=== PATIENT | female | born 1950 | race Caucasian/White ===

== ENCOUNTER 2016-11-03 05:41 | Inpatient (IN) | payer MEDICARE, OTHER ==
[~2016-11-03] VITALS: Ht 180.3 cm; Wt 131.0 kg
[~2016-11-03 05:41] MED LIST: ACET-703 PO; ASPI325T PO; CARA1TAB6 PO; CHEL50TA PO; CINN500T PO; CO Q100C9 PO; CYAN1TAB24 PO; FERR1TAB52 PO; GING550C PO; GLUC15009 PO; HYDR-3535 PO; IBUP-988 PO; MAGN500T4 PO; MILK1CAP PO; TURMCAP PO; VITA100018 PO; ZYRT10TA PO
[2016-11-03] MEDS ORDERED: ceFAZolin 2 GM PREMIX 50 ML ONE (06:23)
[2016-11-03 06:37] VITALS: BP 138/74; PULSE 63; RESP 20; TEMP 98.7; O2SAT 98
[2016-11-03] MEDS ORDERED: ACETAMINOPHEN 1000 MG/100 ML VIAL IV ONE (07:39)
[2016-11-03] MEDS ORDERED: fentaNYL CITRATE 250 MCG/5 ML AMP ONE ×2 (07:40→13:04)
[2016-11-03] MEDS ORDERED: MIDAZOLAM HCL 2 MG/2 ML VIAL ONE (07:40)
[2016-11-03] MEDS ORDERED: FAMOTIDINE 20 MG/2 ML VIAL ONE (07:40)
[2016-11-03 07:43] LABS: AUTOMATED NEUTROPHIL # 4.1 TH/MM3 (1.8-7.7); BASOPHIL % 0.5 % (0.0-2.0); EOSINOPHIL # 0.1 TH/MM3 (0-0.4); EOSINOPHIL % 1.6 % (0.0-4.0); HEMATOCRIT 39.9 % (35.0-46.0); HEMO FLAGS DIFF FINAL; LYMPH % 18.7 % (9.0-44.0); LYMPHOCYTE # 1.2 TH/MM3 (1.0-4.8); MEAN CELL VOLUME 91.2 FL (80.0-100.0); MONO % 13.8 % (0.0-8.0); NEUT % 65.4 % (16.0-70.0); PLATELET COUNT 187 TH/MM3 (150-450); RED BLOOD COUNT 4.38 MIL/MM3 (4.00-5.30); RED CELL DISTRIBUTION WIDTH 14.3 % (11.6-17.2); WHITE BLOOD COUNT 6.3 TH/MM3 (4.0-11.0)
[2016-11-03 07:47] LABS: ALT (GPT) 18 U/L (10-53); ANION GAP 8 MEQ/L (5-15); AST (GOT) 15 U/L (15-37); BICARBONATE 24.9 MEQ/L (21.0-32.0); BLOOD UREA NITROGEN 18 MG/DL (7-18); CHLORIDE 108 MEQ/L (98-107); GLOMERULAR FILTRATION RATE 40 ML/MIN (>89); POTASSIUM 3.9 MEQ/L (3.5-5.1); SODIUM (NA) 141 MEQ/L (136-145)
[2016-11-03 07:49] LABS: ALKALINE PHOSPHATASE 91 U/L (45-117); TOTAL BILIRUBIN ADULT 0.4 MG/DL (0.2-1.0)
[2016-11-03] MEDS ORDERED: BUPIVACAINE LIPOSOME PF 1.3% 20 ML VIAL ONE (10:18)
[2016-11-03] MEDS ORDERED: KETOROLAC TROMETHAMINE 60 MG/2 ML (IM) VIAL IM ONE (12:00)
[2016-11-03] MEDS ORDERED: ONDANSETRON HCL 4 MG/2 ML VIAL IV PUSH ONE (12:00)
[2016-11-03] MEDS ORDERED: PROPOFOL 200 MG/20 ML AMP IV ONE (12:00)
[2016-11-03] MEDS ORDERED: LACTATED RINGER'S 1000 ML INJ 2,000 ML IV ONE (12:00)
[2016-11-03] MEDS ORDERED: SODIUM CHLORIDE 0.9% FLUSH 10 ML FLUSH IV FLUSH PRN (12:45)
[2016-11-03] MEDS ORDERED: Post-op Orders (for Pharmacy) MISC XX ONE (12:45)
[2016-11-03] MEDS ORDERED: HYDROmorphone HCL PF 1 MG/ML VIAL IV PRN (12:45)
[2016-11-03] MEDS ORDERED: MAGNESIUM HYDROXIDE SUSP 30 ML CUP PO PRN (12:45)
--- NOTE | 2016-11-03 12:48 | PD.OP ---
Operative Report Date of Surgery: Nov 03, 2016 Preoperative Diagnosis: ventral incisional hernia, morbid obesity Postoperative Diagnosis: same Procedure: open repair VIH with AWR components separation, retrorectus mesh placement, L side TAR, R side anterior fascial release. abdominoplasty, BOBBI dressings Anesthesia: general, preop Tap block Surgeon: Marc Minaya Coil Assembler(s): Elicia Gonzalse MS3 Operation and Findings: Multiloculated VIHs, 15 x 25 cm polypropylene mesh. 1.4 KG skin and subcutaneous fat excision. EBL less than 100 ml. Marc Minaya MD Nov 03, 2016 12:48
[2016-11-03] MEDS ORDERED: MORPHINE SULFATE 4 MG/ML INJ ONE (13:04)
[2016-11-03] MEDS ORDERED: *morphine SULFATE 8 MG/ML PERIprocedure ONLY ONE (13:16)
[2016-11-03] MEDS ORDERED: *HYDROmorphone PF 1 MG VIAL PERIprocedural Use ONLY ONE (13:44)
[2016-11-03] MEDS: LACTATED RINGER'S 1000 ML INJ 1,000 ML IV SCH ×2 (13:54→20:22)
[2016-11-03] MEDS: KETOROLAC TROMETHAMINE 30 MG/ML (IVP) VIAL IVP SCH ×2 (14:00→20:19)
[2016-11-03] MEDS ORDERED: DO NOT ADM ANY ANTICOAGULANT DRUGS PRN (14:00)
[2016-11-03] MEDS: ONDANSETRON HCL 4 MG/2 ML VIAL IV PRN (15:46)
[2016-11-03] MEDS: ACETAMINOPHEN 1000 MG/100 ML VIAL IV SCH (15:46)
[2016-11-03 16:00] VITALS: BP 150/70; PULSE 76; RESP 17; TEMP 96.3; O2SAT 95
[2016-11-03 17:37] VITALS: O2SAT 94
[2016-11-03 20:00] VITALS: BP 132/62; PULSE 70; RESP 18; TEMP 96.3; O2SAT 92
[2016-11-03] MEDS: DOCUSATE SODIUM 100 MG CAP PO SCH (20:19)
[2016-11-03] MEDS: SODIUM CHLORIDE 0.9% FLUSH 10 ML FLUSH IV FLUSH SCH (20:21)
--- NOTE | 2016-11-03 21:07 | EKG ---
Date Performed: 11/03/2016 Time Performed: 07:43:28 PTAGE: 66 years EKG: SINUS BRADYCARDIA BORDERLINE ECG PREVIOUS TRACING : 10/22/2014 14.39 Compared to prior tracing no significant change DOCTOR: Yung Goel Interpretating Date/Time 11/03/2016 21:05:09
[2016-11-04] VITALS: BP 109/56; PULSE 63; RESP 16; TEMP 97; O2SAT 92
[2016-11-04] MEDS: ACETAMINOPHEN 1000 MG/100 ML VIAL IV SCH ×4 (00:34→23:53)
[2016-11-04] MEDS: KETOROLAC TROMETHAMINE 30 MG/ML (IVP) VIAL IVP SCH ×4 (03:14→21:03)
[2016-11-04 04:00] VITALS: BP 106/51; PULSE 63; RESP 18; TEMP 97.7; O2SAT 92
[2016-11-04 04:25] LABS: AUTOMATED NEUTROPHIL # 15.8 TH/MM3 (1.8-7.7); BASOPHIL % 0.1 % (0.0-2.0); HEMATOCRIT 38.5 % (35.0-46.0); HEMO FLAGS DIFF FINAL; LYMPH % 4.5 % (9.0-44.0); LYMPHOCYTE # 0.8 TH/MM3 (1.0-4.8); MEAN CELL VOLUME 92.9 FL (80.0-100.0); MEAN CORPUSCULAR HEMOGLOBIN 29.9 PG (27.0-34.0); MEAN CORPUSCULAR HGB CONC 32.2 % (32.0-36.0); MONO % 9.3 % (0.0-8.0); NEUT % 86.1 % (16.0-70.0); PLATELET COUNT 181 TH/MM3 (150-450); RED BLOOD COUNT 4.14 MIL/MM3 (4.00-5.30); RED CELL DISTRIBUTION WIDTH 14.3 % (11.6-17.2); WHITE BLOOD COUNT 18.4 TH/MM3 (4.0-11.0)
[2016-11-04 04:34] LABS: BICARBONATE 26.5 MEQ/L (21.0-32.0); POTASSIUM 4.6 MEQ/L (3.5-5.1)
--- NOTE | 2016-11-04 07:46 | HHI.PR ---
Subjective Subjective Notes Feels no pain. Ordering regualr food for breakfast, no nausea. Objective Vitals/I&O Vital Signs Date Time Temp Pulse Resp B/P Pulse Ox O2 Delivery O2 Flow Rate FiO2 11/04/16 04:00 97.7 63 18 106/51 92 11/03/16 17:37 21 11/03/16 15:00 Nasal Cannula 2 Labs Laboratory Tests Test 11/04/16 03:11 White Blood Count 18.4 Red Blood Count 4.14 Hemoglobin 12.4 Hematocrit 38.5 Mean Corpuscular Volume 92.9 Mean Corpuscular Hemoglobin 29.9 Mean Corpuscular Hemoglobin 32.2 Concent Red Cell Distribution Width 14.3 Platelet Count 181 Mean Platelet Volume 9.9 Neutrophils (%) (Auto) 86.1 Lymphocytes (%) (Auto) 4.5 Monocytes (%) (Auto) 9.3 Eosinophils (%) (Auto) 0.0 Basophils (%) (Auto) 0.1 Neutrophils # (Auto) 15.8 Lymphocytes # (Auto) 0.8 Monocytes # (Auto) 1.7 Eosinophils # (Auto) 0.0 Basophils # (Auto) 0.0 CBC Comment DIFF FINAL Differential Comment Sodium Level 138 Potassium Level 4.6 Chloride Level 105 Carbon Dioxide Level 26.5 Anion Gap 7 Blood Urea Nitrogen 21 Creatinine 1.51 Estimat Glomerular Filtration 34 Rate Random Glucose 116 Calcium Level 8.3 Magnesium Level 2.0 Cardiovascular: Regular Lungs: Clear Abdomen: Non-distended, Non-tender, Other (BOBBI dressings intact with little drainage. No leak.) Extremities: No edema, Perfused, SCD's on A/P Assessment and Plan POD 1 open repair VIHs with AWR and separation of components, retrorectus mesh, abdominoplasty. Doing well. Anti yeast powder in groin creases. Home when tolerating po well, po meds, voiding on own and having BMs. Marc Minaya MD Nov 04, 2016 07:46
[2016-11-04 08:00] VITALS: BP 93/52; PULSE 63; RESP 14; TEMP 97.2; O2SAT 94
[2016-11-04] MEDS: SODIUM CHLORIDE 0.9% FLUSH 10 ML FLUSH IV FLUSH SCH ×2 (09:22→21:00)
[2016-11-04] MEDS: DOCUSATE SODIUM 100 MG CAP PO SCH ×2 (09:22→21:03)
[2016-11-04] MEDS: LACTATED RINGER'S 1000 ML INJ 1,000 ML IV SCH ×2 (09:22→16:26)
[2016-11-04] MEDS: NYSTATIN 100,000 U/GM PWD 15 GM BTL TOPICAL SCH ×2 (09:23→21:03)
[2016-11-04 12:00] VITALS: BP 113/56; PULSE 88; RESP 18; TEMP 96.8; O2SAT 91
[2016-11-04] MEDS: ENOXAPARIN SODIUM 40 MG/0.4 ML SYRINGE SQ SCH (12:10)
[2016-11-04 16:00] VITALS: BP 107/54; PULSE 74; RESP 16; TEMP 97.5; O2SAT 93
[2016-11-04 20:00] VITALS: BP 129/60; PULSE 77; RESP 20; TEMP 99.3; O2SAT 91
--- NOTE | 2016-11-04 22:10 | MP ---
cc: TIM BOND MD DATE OF SURGERY 11/03/16 PREOPERATIVE DIAGNOSIS 1. Ventral incisional hernias. 2. Morbid obesity POSTOPERATIVE DIAGNOSES 1. Ventral incisional hernias. 2. Morbid obesity PROCEDURE 1. Open repair of ventral incisional hernias with abdominal wall reconstruction using modified component separation retro rectus placement of mesh 2. Abdominoplasty and ariela dressing placement. SURGEON Dr. Khushbu Bond STAFF PHYSICAL THERAPIST Dr. Janice Mccartney SECOND STAFF PHYSICAL THERAPIST Jessi Waller, MS III. ANESTHESIA General and TMP block preop INDICATIONS The patient is a pleasant 66-year-old woman who has had multiple previous abdominal surgeries and developed an upper midline ventral incisional hernia. It is increasing in size creating increasing symptoms of discomfort. She has had chronic disability associated with her obesity and requests consideration for abdominoplasty. INTRAOPERATIVE FINDINGS Multiple ventral incisional hernia defects in the upper midline contained both omentum and loops of small bowel. Small infraumbilical hernia defect. At least a 40 cm x 8 cm area of skin and subcutaneous tissue excised as abdominoplasty. Estimated blood loss less than 100 mL. PROCEDURE IN DETAIL The patient identified as Chayito Collins, taken to operating rooo, placed in supine position. Sequential compression devices were placed on bilateral lower extremities. Following induction of adequate general endotracheal anesthesia. A Fairchild catheter was placed and the patient's abdomen was prepped and draped in usual sterile fashion with Betadine. A time-out procedure was performed. Following completion of time-out procedure to everyone's satisfaction within the room, proposed incisions were made with a marking pen. The patient desired saving her umbilicus. The widened upper midline scar was excised using the scalpel and electrocautery. Small bleeding points were controlled with electrocautery. Skin and subcutaneous fatty tissue excised in entirety and removed. Hernia sacs were identified. One hernia sac was entered allowing for entry into the peritoneal cavity and release of the incarcerated small bowel and omentum from the hernia sac. Hernia sac was excised in multiple small pieces circumferentially. This allowed for identification of the edges of the hernia defect which was approximate 8 x 15 cm in size. There were multiple tiny bridges of fascia across the midline hernia defects. Component separation was then performed, releasing the posterior fascia and peritoneum from the rectus muscle. This was done on both sides. Upon releasing the posterior fascia and peritoneum from the rectus muscle laterally, there still was too much tension at the midline and, therefore, a transversus abdominis release on the left side was performed which allowed for medialization of the left side in order to allow for closure without unnecessary tension. A right side transverse abdominis release was not required. Adhesions from the omentum to the small bowel were taken down so as to avoid an internal hernia. Small bowel was preserved and not injured. A piece of Seprafilm was placed over the small bowel. The omentum was draped over the Seprafilm. The posterior fascia and peritoneum was then closed with a running #1 looped PDS suture. One small tear in the posterior fascia was closed with running 2-0 Vicryl suture. This retro rectus space was irrigated copiously with saline. There was no evidence of bleeding. It was measured in size. It was about 15 x 25 cm in size and a piece of Bard polypropylene mesh was brought on the back table, cut to an appropriate size of elliptical shape. It was placed into the retro rectus space and sutured in position with multiple interrupted 2-0 PDS sutures, first at the 12 and 6 o'clock position then at 3 and 9 o'clock position making the mesh taut in the retro rectus space. Multiple interrupted 2-0 PDS sutures were then placed, first between the 3 and o'clock then in the 9 and 12 o'clock and then the 3 and 12 o'clock and then the 6 and 9 o'clock positions. Irrigation ensued. There was no evidence of bleeding. The anterior fascia was then released circumferentially from the subcutaneous fatty tissue in both locations again. There was difficulty in full medialization of the anterior fascia and muscle and, therefore, a Fransisco type anterior release was performed on the right side but not on the left side. This allowed for midline medialization of the rectus fascia and rectus muscle which was then closed with two separate #1 PDS loop sutures starting from the top and bottom and meeting in the midline. The subcutaneous space was then irrigated copiously with saline. Attention was then turned towards abdominoplasty. A wide elliptical type incision was made infraumbilical from hip to hip above the infraclavicular crease. The incision was carried out with a scalpel and hemostasis controlled with electrocautery. Large swab of skin and subcutaneous fatty tissue was excised in its entirety and passed off the field for pathologic evaluation. Incidentally discovered in the infraumbilical position was a small fascial defect which was approximated with interrupted [id number] using 2-0 PDS sutures. The umbilicus was preserved and appeared to have good blood supply. Several 2-0 Vicryl quilting sutures was used lateral to the midline in the supraumbilical position. 2-0 Vicryl was used to close both incisions in two layers and then the skin was approximated with surgical param. There appeared to be good blood supply to all the skin and subcutaneous fatty tissue flaps. No drains were placed. Ariela dressings were placed in a standard fashion across the low portion of the inverted T incision and across the midline incision. The Ariela dressings were connected to the vacuum battery packs and there was excellent function with no evidence of leak. The patient tolerated the procedures without apparent complication. Sponge, needle and instrument counts were correct at the end of the case. MD CHARLEEN Manzanares/ /8:46 PM /9:31 PM KELLI
[2016-11-05] VITALS: BP 120/57; PULSE 79; RESP 20; TEMP 97.2; O2SAT 93
[2016-11-05] MEDS: KETOROLAC TROMETHAMINE 30 MG/ML (IVP) VIAL IVP SCH ×4 (02:00→20:21)
[2016-11-05] MEDS: LACTATED RINGER'S 1000 ML INJ 1,000 ML IV SCH ×2 (04:37→14:37)
--- NOTE | 2016-11-05 06:54 | PD.PN.STU ---
Subjective Remarks POD #2 Abdominal Wall Repair and Abdominoplasty Ms. Collins was able to sleep some last night, and ambulated yesterday. She had flatulence but no bowel movement yet. Fairchild and IV fluids were being discontinued. Her overall pain is well controlled. She is complaining of one staple on lower right midline causing terrible pain any time she moves. She insists it must be fixed before she moves around today. She fought to have the Fairchild out until the staple is fixed. Objective Vitals Vital signs stable, urine output good. Abdomen soft, minimal tenderness, dressing dry with minimal dried blood. GENERAL: SKIN: Warm and dry. HEAD: Normocephalic. EYES: No scleral icterus. No injection or drainage. NECK: Supple, trachea midline. No JVD or lymphadenopathy. CARDIOVASCULAR: Regular rate and rhythm without murmurs, gallops, or rubs. RESPIRATORY: Breath sounds equal bilaterally. No accessory muscle use. GASTROINTESTINAL: Abdomen soft, mildly tender, nondistended, BOBBI dressing intact, with minimal dried blood. MUSCULOSKELETAL: No cyanosis, or edema. BACK: Nontender without obvious deformity. No CVA tenderness. Vital Signs Date Time Temp Pulse Resp B/P Pulse Ox O2 Delivery O2 Flow Rate FiO2 11/05/16 00:00 97.2 79 20 120/57 93 11/04/16 20:00 99.3 77 20 129/60 91 11/04/16 16:00 97.5 74 16 107/54 93 11/04/16 12:00 96.8 88 18 113/56 91 11/04/16 08:00 97.2 63 14 93/52 94 I/O 11/04/16 11/04/16 11/04/16 11/05/16 11/05/16 11/05/16 07:00 15:00 23:00 07:00 15:00 23:00 Intake Total 595 ml 1952 ml 840 ml 120 ml Output Total 640 ml 400 ml 800 ml Balance 595 ml 1312 ml 440 ml -680 ml Intake Oral 800 ml 240 ml 120 ml IV Total 595 ml 1152 ml 600 ml Output Urine Total 640 ml 400 ml 800 ml # Bowel Movements 0 0 0 Result Diagram: 11/04/16 0311 11/04/16310 A/P Assessment and Plan Ms. Collins is 66F POD #2, doing well with only complaints about a suture causing pain, overall pain well controlled. Fairchild and IVF d/c Ambulation and normal diet today. Discharge when voiding on her own, bowel movement, and tolerating normal diet. I directly supervised the medical student. I agree with above assessment and plan. The following services were provided during this hospital visit: Chart data review, vital sign assessments/reviewing monitor data Review of consultation notes if present Medication orders/review and/or management Ordering and/or reviewing lab tests Ordering and/or interpreting/reviewing x-rays and/or diagnostic studies Care of the patient and discussion of the patient with the care team Documentation time The patient was seen and evaluated by Dr Reno on this date. Please refer to his note for details. Thanks. Marc WallerTimElicia Nov 05, 2016 06:54 Marc Minaya MD Nov 08, 2016 07:34
[2016-11-05 08:00] VITALS: BP 160/72; PULSE 68; RESP 14; TEMP 97.2; O2SAT 93
[2016-11-05] MEDS: ACETAMINOPHEN/HYDROcodone 325 MG/7.5 MG TAB PO PRN ×2 (09:20→18:21)
[2016-11-05] MEDS: DOCUSATE SODIUM 100 MG CAP PO SCH ×2 (09:20→20:24)
[2016-11-05] MEDS: ACETAMINOPHEN 1000 MG/100 ML VIAL IV SCH (09:23)
[2016-11-05] MEDS: SODIUM CHLORIDE 0.9% FLUSH 10 ML FLUSH IV FLUSH SCH ×2 (09:24→20:23)
[2016-11-05] MEDS: NYSTATIN 100,000 U/GM PWD 15 GM BTL TOPICAL SCH ×2 (09:24→20:24)
[2016-11-05 12:00] VITALS: BP 118/58; PULSE 68; RESP 20; TEMP 98.4; O2SAT 94
[2016-11-05] MEDS: ENOXAPARIN SODIUM 40 MG/0.4 ML SYRINGE SQ SCH (13:10)
[2016-11-05 16:00] VITALS: BP 120/58; PULSE 68; RESP 20; TEMP 97.9; O2SAT 93
--- NOTE | 2016-11-05 16:14 | HHI.PR ---
Subjective Subjective Notes Afraid to eat Pain RLQ just above dressing; feels a "pulling sensation" with pain Objective Vitals/I&O Vital Signs Date Time Temp Pulse Resp B/P Pulse Ox O2 Delivery O2 Flow Rate FiO2 11/05/16 12:00 98.4 68 20 118/58 94 11/03/16 17:37 21 11/03/16 15:00 Nasal Cannula 2 Lungs: Clear Abdomen: Non-distended, Post-op tenderness Narrative Exam BOBBI dressings x 3 intact with minimal drainage A/P Problem List: (1) Depression Assessment and Plan Assessment and Plan POD 2 open repair VIHs with AWR and separation of components, retrorectus mesh, abdominoplasty. Doing well. Anti yeast powder in groin creases. Tolerating liquids; reports much flatus and a single BM Home when tolerating po well, po meds, voiding on own and having BMs. Marlon Reno MD Nov 05, 2016 16:14
[2016-11-05 20:00] VITALS: BP 180/74; PULSE 74; RESP 20; TEMP 97.9; O2SAT 92
[2016-11-06] VITALS: BP 129/61; PULSE 77; RESP 20; TEMP 97.9; O2SAT 92
[2016-11-06] MEDS: LACTATED RINGER'S 1000 ML INJ 1,000 ML IV SCH ×3 (01:35→20:37)
[2016-11-06] MEDS: KETOROLAC TROMETHAMINE 30 MG/ML (IVP) VIAL IVP SCH ×2 (02:00→08:47)
[2016-11-06] MEDS: ACETAMINOPHEN/HYDROcodone 325 MG/7.5 MG TAB PO PRN ×3 (02:44→20:43)
[2016-11-06 08:00] VITALS: BP 139/63; PULSE 83; RESP 19; TEMP 98.6; O2SAT 94
[2016-11-06] MEDS: DOCUSATE SODIUM 100 MG CAP PO SCH ×2 (08:46→20:44)
[2016-11-06] MEDS: SODIUM CHLORIDE 0.9% FLUSH 10 ML FLUSH IV FLUSH SCH ×2 (08:48→20:45)
[2016-11-06] MEDS: NYSTATIN 100,000 U/GM PWD 15 GM BTL TOPICAL SCH ×2 (08:48→20:45)
[2016-11-06] MEDS: ENOXAPARIN SODIUM 40 MG/0.4 ML SYRINGE SQ SCH (11:19)
[2016-11-06 12:00] VITALS: BP 136/70; PULSE 86; RESP 18; TEMP 97.2; O2SAT 95
[2016-11-06] MEDS: ACETAMINOPHEN/HYDROcodone 325 MG/5 MG TAB PO PRN (12:43)
--- NOTE | 2016-11-06 15:16 | HHI.PR ---
Subjective Subjective Notes DAILY PROGRESS NOTE FOR SURGICAL ATTENDING, DR. QUAN OZUNA Doing well Minimal pain Some of the leobardo dressings making noises Objective Vitals/I&O Vital Signs Date Time Temp Pulse Resp B/P Pulse Ox O2 Delivery O2 Flow Rate FiO2 11/06/16 12:00 97.2 86 18 136/70 95 11/03/16 17:37 21 11/03/16 15:00 Nasal Cannula 2 Labs Laboratory Tests Test 11/03/16 11/04/16 07:00 03:11 Total Bilirubin 0.4 MG/DL Aspartate Amino Transf 15 U/L (AST/SGOT) Alanine Aminotransferase 18 U/L (ALT/SGPT) Alkaline Phosphatase 91 U/L Total Protein 6.8 GM/DL Albumin 3.3 GM/DL White Blood Count 18.4 TH/MM3 Red Blood Count 4.14 MIL/MM3 Hemoglobin 12.4 GM/DL Hematocrit 38.5 % Mean Corpuscular Volume 92.9 FL Mean Corpuscular Hemoglobin 29.9 PG Mean Corpuscular Hemoglobin 32.2 % Concent Red Cell Distribution Width 14.3 % Platelet Count 181 TH/MM3 Mean Platelet Volume 9.9 FL Neutrophils (%) (Auto) 86.1 % Lymphocytes (%) (Auto) 4.5 % Monocytes (%) (Auto) 9.3 % Eosinophils (%) (Auto) 0.0 % Basophils (%) (Auto) 0.1 % Neutrophils # (Auto) 15.8 TH/MM3 Lymphocytes # (Auto) 0.8 TH/MM3 Monocytes # (Auto) 1.7 TH/MM3 Eosinophils # (Auto) 0.0 TH/MM3 Basophils # (Auto) 0.0 TH/MM3 CBC Comment DIFF FINAL Differential Comment Sodium Level 138 MEQ/L Potassium Level 4.6 MEQ/L Chloride Level 105 MEQ/L Carbon Dioxide Level 26.5 MEQ/L Anion Gap 7 MEQ/L Blood Urea Nitrogen 21 MG/DL Creatinine 1.51 MG/DL Estimat Glomerular Filtration 34 ML/MIN Rate Random Glucose 116 MG/DL Calcium Level 8.3 MG/DL Magnesium Level 2.0 MG/DL Cardiovascular: Regular Lungs: Clear Abdomen: Post-op tenderness Extremities: SCD's on Narrative Exam 3 leobardo dressings with good seal A/P Assessment and Plan pOD 3 open repair VIHs with AWR and separation of components, retrorectus mesh, abdominoplasty. Doing well. Anti yeast powder in groin creases. Tolerating liquids; reports much flatus and a single BM Home when tolerating po well, po meds, voiding on own and having BMs. Attending Statement NOTE FOR SURGICAL ATTENDING, DR. QUAN OZUNA I attest that I had a [id number] encounter with the patient on the same day, and personally performed and documented my assessment and findings in the medical record. The following services were provided during this hospital visit: Chart data review, vital sign assessments/reviewing monitor data Review of consultations notes if present. Medication orders/review and/or management Ordering and/or reviewing lab tests Ordering and/or interpreting/reviewing x-rays and/or diagnostic studies Care of the patient and discussion of the patient with the care team Documentation time To help prompt me to consider important information that might be impacting today's encounter and assessment, information from prior notes written by myself or my colleagues may have been "brought forward/copy and pasted" into today's note. Quan Ozuna MD Nov 06, 2016 15:16
[2016-11-06 16:00] VITALS: BP 135/73; PULSE 84; RESP 18; TEMP 96.8; O2SAT 95
[2016-11-06 20:00] VITALS: BP 145/69; PULSE 86; RESP 18; TEMP 99.6
[2016-11-07 01:01] VITALS: BP 115/56; PULSE 80; RESP 18; TEMP 99.2; O2SAT 92
[2016-11-07] MEDS: ACETAMINOPHEN/HYDROcodone 325 MG/7.5 MG TAB PO PRN (04:02)
[2016-11-07] MEDS: LACTATED RINGER'S 1000 ML INJ 1,000 ML IV SCH ×2 (04:02→16:37)
[2016-11-07] MEDS: DOCUSATE SODIUM 50 MG/SENNA 8.6 MG TAB PO PRN (07:49)
[2016-11-07] MEDS: DOCUSATE SODIUM 100 MG CAP PO SCH ×2 (07:49→21:00)
[2016-11-07] MEDS: NYSTATIN 100,000 U/GM PWD 15 GM BTL TOPICAL SCH ×2 (07:50→21:00)
[2016-11-07] MEDS: ONDANSETRON HCL 4 MG/2 ML VIAL IV PRN (07:50)
[2016-11-07] MEDS: SODIUM CHLORIDE 0.9% FLUSH 10 ML FLUSH IV FLUSH SCH ×2 (07:50→21:00)
[2016-11-07 08:00] VITALS: BP 144/63; PULSE 77; RESP 18; TEMP 98.4; O2SAT 94
[2016-11-07 12:00] VITALS: BP 132/62; PULSE 84; RESP 20; TEMP 98.8; O2SAT 93
[2016-11-07] MEDS: ENOXAPARIN SODIUM 40 MG/0.4 ML SYRINGE SQ SCH (12:02)
[2016-11-07] MEDS: POLYETHYLENE GLYCOL 17 GM PKG PO SCH (12:17)
[2016-11-07] MEDS: BISACODYL 10 MG SUPP RECTAL SCH (14:45)
[2016-11-07 16:00] VITALS: BP 150/65; PULSE 80; RESP 20; TEMP 98.4; O2SAT 93
--- NOTE | 2016-11-07 16:25 | HHI.PR ---
Subjective Subjective Notes NOTE FOR SURGICAL ATTENDING, DR. QUAN OZUNA Resting in bed No BM; feels uncomfortable from that Objective Vitals/I&O Vital Signs Date Time Temp Pulse Resp B/P Pulse Ox O2 Delivery O2 Flow Rate FiO2 11/07/16 12:00 98.8 84 20 132/62 93 11/03/16 17:37 21 11/03/16 15:00 Nasal Cannula 2 Cardiovascular: Regular Lungs: Clear Abdomen: Other (BOBBI dressings in place with good seal; abdomen soft; non tender ) Extremities: No edema A/P Problem List: (1) Depression Assessment and Plan 66 year old female s/p TAWR with separation of components -Regular diet -Pain control -BM regimen -OOB and mobilize -Home when +BM and pain controlled Attending Statement NOTE FOR SURGICAL ATTENDING, DR. QUAN OZUNA I attest that I had a [id number] encounter with the patient on the same day, and personally performed and documented my assessment and findings in the medical record. The following services were provided during this hospital visit: Chart data review, vital sign assessments/reviewing monitor data Review of consultations notes if present. Medication orders/review and/or management Ordering and/or reviewing lab tests Ordering and/or interpreting/reviewing x-rays and/or diagnostic studies Care of the patient and discussion of the patient with the care team Documentation time To help prompt me to consider important information that might be impacting today's encounter and assessment, information from prior notes written by myself or my colleagues may have been "brought forward/copy and pasted" into today's note. Lexie Jaramillo Nov 07, 2016 16:25 Quan Ozuna MD Nov 07, 2016 16:40
[2016-11-07 20:00] VITALS: BP 134/65; PULSE 81; RESP 20; TEMP 98; O2SAT 92
[2016-11-07] MEDS: ACETAMINOPHEN/HYDROcodone 325 MG/5 MG TAB PO PRN (22:36)
[2016-11-08] VITALS: BP 112/55; PULSE 80; RESP 20; TEMP 99.3; O2SAT 92
[2016-11-08] MEDS: LACTATED RINGER'S 1000 ML INJ 1,000 ML IV SCH ×3 (02:37→22:37)
[2016-11-08 04:00] VITALS: TEMP 97.4
[2016-11-08 08:00] VITALS: BP 130/63; PULSE 83; RESP 18; TEMP 98.1; O2SAT 93
--- NOTE | 2016-11-08 08:03 | HHI.PR ---
Subjective Subjective Notes doing fine. Binder rolling up under chest. Objective Vitals/I&O Vital Signs Date Time Temp Pulse Resp B/P Pulse Ox O2 Delivery O2 Flow Rate FiO2 11/08/16 04:00 97.4 11/08/16 00:50 18 11/08/16 00:00 80 112/55 92 Cardiovascular: Regular Lungs: Clear Abdomen: Non-tender, Other (PICIO dressings look good, buzzing away. Minimal drainage on dressings. Normal BSs.) Extremities: No edema, Perfused A/P Problem List: (1) Depression Assessment and Plan POD 5 open repair VIHs with AWR and separation of components, retrorectus mesh, abdominoplasty. Plan change BOBBI dressings, this afternoon, possible DC home in 1-2 days. Marc Minaya MD Nov 08, 2016 08:03
[2016-11-08] MEDS: BISACODYL 10 MG SUPP RECTAL SCH (09:00)
[2016-11-08] MEDS: POLYETHYLENE GLYCOL 17 GM PKG PO SCH (09:00)
[2016-11-08] MEDS: DOCUSATE SODIUM 100 MG CAP PO SCH ×2 (09:02→21:00)
[2016-11-08] MEDS: DOCUSATE SODIUM 50 MG/SENNA 8.6 MG TAB PO PRN (09:02)
[2016-11-08] MEDS: ACETAMINOPHEN/HYDROcodone 325 MG/5 MG TAB PO PRN ×2 (09:05→15:16)
[2016-11-08] MEDS: SODIUM CHLORIDE 0.9% FLUSH 10 ML FLUSH IV FLUSH SCH ×2 (09:06→21:00)
[2016-11-08] MEDS: NYSTATIN 100,000 U/GM PWD 15 GM BTL TOPICAL SCH ×2 (09:06→21:00)
[2016-11-08] MEDS: ENOXAPARIN SODIUM 40 MG/0.4 ML SYRINGE SQ SCH (11:44)
[2016-11-08 12:00] VITALS: BP 132/61; PULSE 71; RESP 19; TEMP 97.8; O2SAT 93
[2016-11-08 16:00] VITALS: BP 135/62; PULSE 70; RESP 18; TEMP 99; O2SAT 93
[2016-11-08 20:00] VITALS: BP 149/70; PULSE 76; RESP 20; TEMP 97.4; O2SAT 92
[2016-11-09] VITALS: BP 159/70; PULSE 80; RESP 20; TEMP 98.7; O2SAT 94
--- NOTE | 2016-11-09 07:45 | HHI.PR ---
Subjective Subjective Notes Doing OK, preparing to go home tomorrow. Tolerating po, voiding and having BMs. Objective Vitals/I&O Vital Signs Date Time Temp Pulse Resp B/P Pulse Ox O2 Delivery O2 Flow Rate FiO2 11/09/16 00:00 98.7 80 20 159/70 94 Abdomen: Non-distended, Non-tender, Other (BOBBI dressings intact without leak. No drainage. ) Extremities: No edema, Perfused A/P Problem List: (1) Depression Assessment and Plan POD 6 open repair VIHs with AWR and separation of components, retrorectus mesh, abdominoplasty. New BOBBI dressing on. Preparing for DC home tomorrow. Marc Minaya MD Nov 09, 2016 07:45
[2016-11-09 08:00] VITALS: BP 142/65; PULSE 76; RESP 18; TEMP 99.5; O2SAT 94
[2016-11-09] MEDS: ACETAMINOPHEN 325 MG TAB PO PRN ×2 (08:12→22:07)
[2016-11-09] MEDS: DOCUSATE SODIUM 100 MG CAP PO SCH ×2 (08:12→22:04)
[2016-11-09] MEDS: NYSTATIN 100,000 U/GM PWD 15 GM BTL TOPICAL SCH ×2 (08:14→22:06)
[2016-11-09] MEDS: SODIUM CHLORIDE 0.9% FLUSH 10 ML FLUSH IV FLUSH SCH ×2 (08:14→22:05)
[2016-11-09] MEDS: POLYETHYLENE GLYCOL 17 GM PKG PO SCH (08:17)
[2016-11-09] MEDS: BISACODYL 10 MG SUPP RECTAL SCH (08:17)
[2016-11-09] MEDS: ENOXAPARIN SODIUM 40 MG/0.4 ML SYRINGE SQ SCH (11:52)
[2016-11-09 12:00] VITALS: BP 116/68; PULSE 66; RESP 17; TEMP 96.6; O2SAT 93
[2016-11-09 16:00] VITALS: BP 143/63; PULSE 80; RESP 16; TEMP 97.6; O2SAT 98
[2016-11-09 20:00] VITALS: BP 141/68; PULSE 80; RESP 18; TEMP 99.6; O2SAT 96
[2016-11-10] VITALS: BP 129/62; PULSE 76; RESP 17; TEMP 98.2; O2SAT 97
[2016-11-10 08:00] VITALS: BP 149/64; PULSE 80; RESP 17; TEMP 96.7; O2SAT 93
--- NOTE | 2016-11-10 08:23 | HHI.DS ---
Discharge Summary Admission Date Nov 03, 2016 at 12:45 Discharge Date: Nov 10, 2016 Admitting Diagnosis VIHs, morbid obesity (1) Depression Procedures open repair VIHs with AWR, components separation, retrorectus mesh abdominoplasty and BOBBI dressing Brief History 66 year old with multiple prior abdominal surgeries with VIHs enlarging and symptomatic and large panniculus with recurrent yeast infections. PE at Discharge 3 bobbi dressings with good seal Minimal ecchymosis, minimal drainage. No erythema. Nontender. No extremity swelling. Hospital Course Pt admitted through [facility] for surgery. Had surgery without complication. She experienced gradual resumption of normal bowel and bladder function. She worked with PT and was able to improve. She was agreeable for DC. Pt Condition on Discharge: Good Discharge Disposition: Disch w/ Home Health Serv Discharge Instructions DIET: Follow Instructions for: Heart Healthy Diet Activities you can perform: Shower Only-No Bath Activities to Avoid: Strenuous Activity Marc Minaya MD Nov 10, 2016 08:23
[2016-11-10] MEDS: POLYETHYLENE GLYCOL 17 GM PKG PO SCH (08:43)
[2016-11-10] MEDS: DOCUSATE SODIUM 100 MG CAP PO SCH (08:43)
[2016-11-10] MEDS: NYSTATIN 100,000 U/GM PWD 15 GM BTL TOPICAL SCH (08:44)
[2016-11-10] MEDS: BISACODYL 10 MG SUPP RECTAL SCH (08:44)
[2016-11-10] MEDS: SODIUM CHLORIDE 0.9% FLUSH 10 ML FLUSH IV FLUSH SCH (08:46)
[2016-11-10 12:00] VITALS: BP 128/59; PULSE 73; RESP 18; TEMP 98.7; O2SAT 94
[2016-11-10] MEDS: ENOXAPARIN SODIUM 40 MG/0.4 ML SYRINGE SQ SCH (12:08)
[2016-11-10] MEDS ORDERED: LOPERAMIDE HCL 2 MG CAP PO ONE (14:15)
== END 2016-11-10 14:50 | disposition home health service (06) | DRG 355 ==
LOC: HSDC 05:41 → EDSTATUS 08:00 → N07A 12:45
PROVIDERS: ADMIT Surgery Trauma Surgery; ATTEND Surgery Trauma Surgery
PROC: 3E0M05Z Introduction of Adhesion Barrier into Peritoneal Cavity, Open Approach (ICD-10-PCS; 2016-11-03)
PROC: 3E0T3CZ (ICD-10-PCS; 2016-11-03)
PROC: 0WUF0JZ Supplement Abdominal Wall with Synthetic Substitute, Open Approach (ICD-10-PCS; principal; 2016-11-03 07:57)
PROC: 0JB80ZZ Excision of Abdomen Subcutaneous Tissue and Fascia, Open Approach (ICD-10-PCS; 2016-11-03 07:57)
DX: K43.2 Incisional hernia without obstruction or gangrene (principal); E66.01 Morbid (severe) obesity due to excess calories; F32.9 Major depressive disorder, single episode, unspecified; E65 Localized adiposity
CPT/HCPCS: 76937; 80048; 80053; 83735; 85025; 88305; 93005; 94150; C1765; C1781; C9290; J0131; J0690; J1170; J1650; J1885; J2250; J2270; J2405; J3010; J7120